=== PATIENT | male | born 1990 | race Caucasian/White ===

== ENCOUNTER 2017-04-13 23:11 | Emergency (ER) | payer SELFPAY ==
[~2017-04-13] VITALS: Ht 180.3 cm; Wt 81.6 kg
[2017-04-13 23:16] VITALS: BP 110/86
== END 2017-04-14 03:50 | disposition home or self-care (01) ==
LOC: ER 23:15
DX: F19.10 Other psychoactive substance abuse, uncomplicated (principal)
CPT/HCPCS: 99283; A4606; Z7610